=== PATIENT | female | born 1950 | race Caucasian/White ===

== ENCOUNTER 2016-12-24 09:28 | Day surgery (SDC) | payer OTHER ==
[2016-12-24] MEDS ORDERED: LACTATED RINGERS 1,000 ML IV ONE ×2 (10:09→11:44)
== END 2016-12-24 09:29 | disposition home or self-care (01) ==
PROC: 0DBL8ZX Excision of Transverse Colon, Via Natural or Artificial Opening Endoscopic, Diagnostic (ICD-10-PCS; 2016-12-24)
PROC: 0DBK8ZX Excision of Ascending Colon, Via Natural or Artificial Opening Endoscopic, Diagnostic (ICD-10-PCS; principal; 2016-12-24 10:30)
DX: Z12.11 Encounter for screening for malignant neoplasm of colon (principal); D12.2 Benign neoplasm of ascending colon; D12.3 Benign neoplasm of transverse colon; K64.8 Other hemorrhoids; K57.30 Diverticulosis of large intestine without perforation or abscess without bleeding; M06.9 Rheumatoid arthritis, unspecified; Z79.52 Long term (current) use of systemic steroids; Z87.891 Personal history of nicotine dependence; E03.9 Hypothyroidism, unspecified
CPT/HCPCS: 45380; J7120

== ENCOUNTER 2017-10-28 13:19 | Outpatient (CLI) | payer OTHER | END 2017-10-28 13:20 | disposition home or self-care (01) | LOC: DI 13:19 | PROVIDERS: ATTEND Registered Nurse | DX: Z53.9 Procedure and treatment not carried out, unspecified reason (principal) ==

== ENCOUNTER 2017-12-21 08:48 | Outpatient (CLI) | payer OTHER ==
--- NOTE | 2017-12-24 10:23 | Mammography Report ---
RIGHT BREAST ULTRASOUND, AND BILATERAL DIGITAL MAMMOGRAPHY: 12/21/2017 HISTORY: Doctor felt palpable lump right breast 8 o'clock position. COMPARISON: 11/21/2015, 10/20/2011, and 10/15/2010. BILATERAL DIGITAL MAMMOGRAM TECHNIQUE: Bilateral digital CC and MLO projections with additional left exaggerated CC and right true lateral projection. FINDINGS: There is scattered fibroglandular density. No dominant mass, suspicious clustered microcalcifications, architectural distortion, skin thickening or interval change. Stable post-biopsy change left breast. No abnormality is seen in the 8 o'clock position right breast. RIGHT BREAST ULTRASOUND TECHNIQUE: Real-time scanning by the centrifugal wax molder with saved static images reviewed. Ultrasound examination is confined to the 8 o'clock position of the right breast. FINDINGS: No cystic or solid mass or abnormal fluid collection is seen. IMPRESSION: NEGATIVE. BI-RADS CATEGORY 1 - NEGATIVE. SUGGEST RETURN TO ROUTINE SCREENING IN TWELVE MONTHS. NO ABNORMALITY IS SEEN IN THE 8-O'CLOCK POSITION RIGHT BREAST BY EITHER MAMMOGRAPHY OR ULTRASOUND. STANDARD QUALIFYING STATEMENTS 1. This examination was reviewed with the aid of Computer-Aided Detection (CAD). 2. A negative or benign imaging report should not delay biopsy if clinically suspicious findings are present. Consider surgical consultation if warranted. More than 5% of cancers are not identified by imaging. 3. Dense breasts may obscure an underlying neoplasm. TD: 12/21/2017 10:37
== END 2017-12-21 08:49 | disposition home or self-care (01) ==
LOC: DI 08:48
PROVIDERS: ATTEND Registered Nurse
DX: N63.13 Unspecified lump in the right breast, lower outer quadrant (principal)
CPT/HCPCS: 76642; 77066

== ENCOUNTER 2019-03-04 17:33 | Outpatient (CLI) | payer MEDICARE | END 2019-03-04 17:34 | disposition EMS.NT | LOC: EMS 17:33 | PROVIDERS: ATTEND Surgery | DX: S09.90XA Unspecified injury of head, initial encounter (principal); V18.4XXA Pedal cycle driver injured in noncollision transport accident in traffic accident, initial encounter; Y93.55 Activity, bike riding; Y92.410 Unspecified street and highway as the place of occurrence of the external cause ==

== ENCOUNTER 2019-03-04 18:49 | Emergency (ER) | payer MEDICARE, OTHER ==
[2019-03-04] MEDS ORDERED: TETANUS/DIPHTHERIA/PERTUSSIS 0.5 ML SYRINGE IM ONE (19:15)
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
[2019-03-04 20:42] VITALS: BP 140/55
== END 2019-03-04 20:44 | disposition home or self-care (01) ==
LOC: ED 18:49
DX: S01.81XA Laceration without foreign body of other part of head, initial encounter (principal); S09.90XA Unspecified injury of head, initial encounter; V18.0XXA Pedal cycle driver injured in noncollision transport accident in nontraffic accident, initial encounter; Y93.55 Activity, bike riding; Y92.008 Other place in unspecified non-institutional (private) residence as the place of occurrence of the external cause; Z23 Encounter for immunization; R51 Headache
CPT/HCPCS: 12014; 70450; 90471; 99283

== ENCOUNTER 2020-10-24 14:38 | Outpatient (CLI) | payer MEDICARE ==
--- NOTE | 2020-10-24 17:29 | DEXA Report ---
PROCEDURE: Dexa Spine and/or Hip INDICATIONS: OSTEOPOROSIS TECHNIQUE: Dual energy x-ray absorptiometry (DXA) was performed on a [employer] System. Regions measur ed are the AP Spine, femoral neck, and if needed forearm. COMPARISON: None. FINDINGS: Lumbar Spine: Bone Mineral Density 0.776 g/cm/cm,T score -3.4, osteoporosis Left Hip: Bone Mineral Density 0.748 g/cm/cm,T score -2.1, moderate to severe osteopenia Left Femoral Neck: Bone Mineral Density 0.738 g/cm/cm, T score -2.2, severe osteopenia (T score greater or equal to -1.0: NORMAL) (T score from -1.1 to -2.4: OSTEOPENIA) (T score less than or equal to -2.5 to: OSTEOPOROSIS) Impression: Osteoporosis within the lumbar spine. Patients with diagnosis of osteoporosis or osteopenia should have regular bone mineral density assess ment. For those eligible for Medicare, routine testing is allowed once every 2 years. Testing frequ ency can be increased for patients who have rapidly progressing disease or for those who are receivin g medical therapy to restore bone mass. Reviewed by: Shobha Samayoa MD on 10/24/2020 5:27 PM PST Approved by: Shobha Samayoa MD on 10/24/2020 5:27 PM PST Station ID: [id number]
== END 2020-10-24 14:39 | disposition home or self-care (01) ==
LOC: DI 14:38
PROVIDERS: ATTEND Registered Nurse
DX: M81.0 Age-related osteoporosis without current pathological fracture (principal)

== ENCOUNTER 2020-10-29 14:38 | Outpatient (CLI) | payer MEDICARE ==
--- NOTE | 2020-11-07 06:26 | Mammography Report ---
BILATERAL DIGITAL SCREENING MAMMOGRAM 3D/2D: 10/29/2020 CLINICAL: Routine screening. Comparison is made to exams dated: 12/21/2017 mammogram and 11/21/2015 mammogram - [facility]. The tissue of both breasts is heterogeneously dense. This may lower the sensitivity of mamm ography. No significant masses, calcifications, or other findings are seen in either breast. There has been no significant interval change. IMPRESSION: NEGATIVE There is no mammographic evidence of malignancy. A 1 year screening mammogram is recommended. This exam was interpreted at Station ID: [id number]. NOTE: For mammograms, a report in lay terms will be sent to the patient. Approximately 15% of breast malignancies will not be visualized mammographically. In the management of a palpable breast mass, a negative mammogram must not discourage biopsy of a clinically suspicious lesion. Electronically Signed By: Jun lopez/anna:11/06/2020 13:42:11 ACR BI-RADS Category 1: Negative 3341F PARENCHYMAL PATTERN: (D) - The breast(s) demonstrate(s) heterogeneously dense fibroglandular bakari gallo. BI-RADS CATEGORY: (1) - 1 RECOMMENDATION: (ANNUAL) - Recommend routine annual screening mammography. [id number] 1 year screening LATERALITY: (B)
== END 2020-10-29 14:39 | disposition home or self-care (01) ==
LOC: DI.S 14:38
PROVIDERS: ATTEND Registered Nurse
DX: Z12.31 Encounter for screening mammogram for malignant neoplasm of breast (principal)

== ENCOUNTER 2021-12-05 08:22 | Outpatient (CLI) | payer MEDICARE ==
--- NOTE | 2021-12-05 08:48 | DEXA Report ---
PROCEDURE: Dexa Spine and/or Hip INDICATIONS: OSTEOPOROSIS TECHNIQUE: Dual energy x-ray absorptiometry (DXA) was performed on a [employer] System. Regions measur ed are the AP Spine, femoral neck, and if needed forearm. COMPARISON: October 24, 2020. FINDINGS: Lumbar Spine: Bone Mineral Density 0.788 g/cm/cm,T score -3.3, osteoporosis; 1.5% change from prior. Left Femoral Neck: Bone Mineral Density 0.759 g/cm/cm, T score -2.0, osteopenia; 7.9% change from prior. (T score greater or equal to -1.0: NORMAL) (T score from -1.1 to -2.4: OSTEOPENIA) (T score less than or equal to -2.5 to: OSTEOPOROSIS) Impression: Bone mineral density as detailed above. Patients with diagnosis of osteoporosis or osteopenia should have regular bone mineral density assess ment. For those eligible for Medicare, routine testing is allowed once every 2 years. Testing frequ ency can be increased for patients who have rapidly progressing disease or for those who are receivin g medical therapy to restore bone mass. Reviewed by: Bautista Billingsley MD on 12/05/2021 8:47 AM PDT Approved by: Bautista Billingsley MD on 12/05/2021 8:47 AM PDT Station ID: [id number]
== END 2021-12-05 08:23 | disposition home or self-care (01) ==
LOC: DI 08:22
PROVIDERS: ATTEND Registered Nurse
DX: M81.0 Age-related osteoporosis without current pathological fracture (principal)

== ENCOUNTER 2023-01-19 14:45 | Outpatient (CLI) | payer MEDICARE ==
[2023-01-19 20:23] LABS: THYROID STIMULATING HORMONE 1.84 uIU/mL (0.34-5.60)
== END 2023-01-19 14:46 | disposition home or self-care (01) ==
LOC: LAB.S 14:45
PROVIDERS: ATTEND Registered Nurse
DX: E03.9 Hypothyroidism, unspecified (principal)
CPT/HCPCS: 36415; 84443

== ENCOUNTER 2023-01-21 07:26 | Outpatient (CLI) | payer MEDICARE ==
--- NOTE | 2023-01-21 11:47 | Ultrasound Report ---
PROCEDURE: Pelvic w/Transvaginal INDICATIONS: PELVIC PAIN TECHNIQUE: Real-time scanning was performed of the pelvic organs, with image documentation. Additional endovagi nal scanning was necessary due to incomplete visualization of the adnexal and endometrial structures by transabdominal scanning. COMPARISON: None. FINDINGS: Uterus: Uterus is anteverted and normal in size at 4.5 x 2.1 x 4.1 cm. The myometrium is homogeneou s. The endometrium measures 1.4 mm in combined thickness. There is trace fluid seen within the endo metrial canal. Ovaries: Bilateral ovaries are not visualized. No adnexal masses are seen. Other: No pathologic free abdominal or pelvic fluid. IMPRESSION: Unremarkable sonographic appearance of the uterus. Bilateral ovaries are not visualized on this examination. No adnexal mass lesion seen. Reviewed by: Bryan Jay MD on 01/21/2023 11:46 AM PDT Approved by: Bryan Jay MD on 01/21/2023 11:46 AM PDT Station ID: [id number]
== END 2023-01-21 07:27 | disposition home or self-care (01) ==
LOC: DI 07:26
PROVIDERS: ATTEND Registered Nurse
DX: R10.2 Pelvic and perineal pain (principal)

== ENCOUNTER 2023-02-01 14:45 | Outpatient (CLI) | payer MEDICARE ==
--- NOTE | 2023-02-03 10:39 | Mammography Report ---
BILATERAL DIGITAL SCREENING MAMMOGRAM 3D/2D: 02/01/2023 CLINICAL: Routine screening. Comparison is made to exams dated: 10/29/2020 mammogram and 12/21/2017 mammogram - [facility]. There are scattered areas of fibroglandular density in both breasts (category b / 25%-50% glandular t issue). No significant masses, calcifications, or other findings are seen in either breast. There has been no significant interval change. IMPRESSION: NEGATIVE There is no mammographic evidence of malignancy. A 1 year screening mammogram is recommended. Based on the Tyrer Cuzick model (a risk assessment model) the patients lifetime risk is 4.5% and her 10 year risk is 2.8%. According to the ACR, ACS, and NCCN guidelines, an annual breast MRI exam peter g with mammogram is recommended if the patients lifetime risk is 20% or greater. This exam was interpreted at Station ID: [id number]. NOTE: For mammograms, a report in lay terms will be sent to the patient. Approximately 15% of breast malignancies will not be visualized mammographically. In the management of a palpable breast mass, a negative mammogram must not discourage biopsy of a clinically suspicious lesion. Electronically Signed By: Jun lopez/anna:02/02/2023 09:59:27 letter sent: No_Letter ACR BI-RADS Category 1: Negative 3341F PARENCHYMAL PATTERN: (A) - The breast(s) demonstrate(s) scattered fibroglandular densities. BI-RADS CATEGORY: (1) - 1 Mammogram [id number] 1 year screening LATERALITY: (B)
== END 2023-02-01 14:46 | disposition home or self-care (01) ==
LOC: DI.S 14:45
PROVIDERS: ATTEND Registered Nurse
DX: Z12.31 Encounter for screening mammogram for malignant neoplasm of breast (principal)